=== PATIENT | female | born 1960 | race Caucasian/White ===

== ENCOUNTER → 2017-03-28 | Outpatient (CLI) | payer OTHER ==
[~2017-03-28] MED LIST: ASPIRIN ENTERI325 M1 PO; CALCIUM 600 +1 EAC4 PO; CLOPIDOGREL75 MG PO; DONEPEZIL HCL10 MG PO; GABAPENTIN; GABAPENTIN600 MG PO; HYDROCHLOROTH12.5 M1 PO; OMEPRAZOLE40 M1 PO; PRAVASTATIN SOD10 MG PO; ZOCOR20 MG PO; [UNRECOGNIZED DRUG - REMARK]; [UNRECOGNIZED DRUG - REMARK]
--- NOTE | ~2017-03-28 | BD1 ---
[facility] A Service of [facility] & [facility] RADIOLOGY TEXT RESULTS PATIENT: WINSTON GODINEZ LOCATION: [facility] : 56 UNIT #: [id number] AGE: [address]: Niki Farr APRN SEX: F ORDER DR: [id number] [address] [address] [id number] O MR#: [id number] Acc #: [id number] NAME: WINSTON GODINEZ : 1960 SEX: F STUDY DATE/TIME: 03/28/2017 15:25 UNIT: [facility] ROOM: STUDY DESCRIPTION: BD Dexa Bone Dens 1+ Site Attending Physician: Niki Farr A.P.R.N. Ordering Physician: Niki Farr A.P.R.N. Primary Care Physician: Jacqui Zambrano M.D. MEDICAL IMAGING REPORT This report is preliminary unless electronic signature is present. EXAM DEXA scan 03/28/2017 HISTORY Status post menopause with no hormone replacement therapy. Osteopenia. Hysterectomy at age 46, arthritis. Hypertension with blood pressure medication. Smoking history for 44 years. FINDINGS Bone mineral density in the lumbar spine from L1 through L4 is 1.118 g/cm2, which is 0.5 standard deviations below the mean when compared to the young adult reference population, which is within the range of normal. This is 0.6 standard deviations below the mean when compared to the age-matched population. Bone mineral density in the left femoral neck was 0.895 g/cm2, which is 1 standard deviation below the mean when compared to the young adult reference population, which is characteristic of osteopenia. This is 0.6 standard deviations below the mean when compared to the age-matched population. Bone mineral density in the right femoral neck was 0.896 g/cm2, which is 1 standard deviation below the mean when compared to the young adult reference population, which is characteristic of osteopenia. This is 0.6 standard deviations below the mean when compared to the age-match population. IMPRESSION Bone mineral density in the lumbar spine within the range of normal and within the hips bilaterally characteristic of osteopenia. Dictated by... [facility] A Service of [facility] & [facility] RADIOLOGY TEXT RESULTS PATIENT: WINSTON GODINEZ LOCATION: [facility] : 56 UNIT #: [id number] AGE: [address]: Niki Farr APRN SEX: F ORDER DR: Mauricio Guerrero M.D. THIS IS AN ELECTRONICALLY VERIFIED REPORT Mauricio Guerrero M.D. at 03/29/2017 3:05 PM KRT/to TD: 03/28/2017 22:29 JOB #: [id number] MEDICAL IMAGING REPORT Page 1 of 1
== END | disposition home or self-care (01) ==
LOC: SRAD 15:04
DX: Z13.820 Encounter for screening for osteoporosis (principal); Z78.0 Asymptomatic menopausal state
CPT/HCPCS: 77080

== ENCOUNTER → 2017-04-04 | Outpatient (CLI) | payer OTHER ==
--- NOTE | ~2017-04-04 | CT138 ---
[facility] A Service of [facility] & [facility] RADIOLOGY TEXT RESULTS PATIENT: WINSTON GODINEZ LOCATION: [facility] : 56 UNIT #: [id number] AGE: [address]: Niki Farr APRN SEX: F ORDER DR: [id number] [facility] [address] [place], [place] [address] [id number] P MR#: [id number] Acc #: [id number] NAME: WINSTON GODINEZ. : 1960 SEX: F STUDY DATE/TIME: 04/04/2017 16:36 UNIT: [facility] ROOM: STUDY DESCRIPTION: CT Lung screening initial Attending Physician: Niki Farr A.P.R.N. Referring Physician: Niki Farr A.P.R.N. Ordering Physician: Niki Farr A.P.R.N. Primary Care Physician: Jacqui Zambrano M.D. MEDICAL IMAGING REPORT This report is preliminary unless electronic signature is present EXAM CT of the chest without contrast, lung cancer screening. INDICATIONS [id number] total smoking history. Former smoker quit [address] of the chest was performed without contrast using the low-dose lung cancer screening protocol. CT dose index [address] exam was performed with one or more of the following radiation dose reduction techniques: automatic exposure control, adjustment of mA and/or kV according to patient size, and iterative reconstruction. Coronal and sagittal reformatted images are obtained. COMPARISON No comparisons are available. FINDINGS There are emphysematous changes of the lungs. There are no suspicious pulmonary nodules. Calcified mediastinal and hilar lymph nodes. Coronary artery calcification. No pleural effusion. Bone windows are unremarkable. IMPRESSION There is no suspicious pulmonary nodule. ACR LungRADS category 1. Follow up annual low-dose lung cancer screening chest CT in 1 year. Dictated by... Maico Rojas M.D. THIS IS AN ELECTRONICALLY VERIFIED REPORT Maico Rojas M.D. at 04/06/2017 3:46 PM ARS/jt [facility]. [facility] A Service of [facility] & [facility] RADIOLOGY TEXT RESULTS PATIENT: WINSTON GODINEZ LOCATION: [facility] : 56 UNIT #: [id number] AGE: [address]: Niki Farr APRN SEX: F ORDER DR: TD: 04/05/2017 16:15 JOB #: [id number] MEDICAL IMAGING REPORT Page 1 of 1 COPY
== END | disposition home or self-care (01) ==
LOC: CCAT 09:30
DX: Z87.891 Personal history of nicotine dependence (principal)
CPT/HCPCS: G0297

== ENCOUNTER → 2017-05-05 | Outpatient (CLI) | payer OTHER ==
--- NOTE | ~2017-05-05 | MY11 ---
[facility] A Service [facility] RADIOLOGY TEXT RESULTS PATIENT: WINSTON GODINEZ LOCATION: [facility] : 56 UNIT #: [id number] AGE: [address]: Niki Farr APRN SEX: F ORDER DR: [id number] [address] [address] [id number] O MR#: [id number] Acc #: [id number] NAME: WINSTON GODINEZ : 1960 SEX: F STUDY DATE/TIME: 05/05/2017 16:19 UNIT: [facility] ROOM: STUDY DESCRIPTION: MY Mammogram Screening Dig [place] Attending Physician: Niki Farr A.P.R.N. Referring Physician: Niki Farr A.P.R.N. Ordering Physician: Niki Farr A.P.R.N. Primary Care Physician: Jacqui Zambrano M.D. MEDICAL IMAGING REPORT This report is preliminary unless electronic signature is present. EXAM Digital screening mammogram 05/05/2017 [facility] HISTORY 56-year-old woman, no risk elevation. History of ovarian cancer in maternal grandmother. Annual screen. COMPARISON 05/21/2012, 06/07/2013, 04/29/2016 FINDINGS Digital imaging of each breast was completed utilizing a two-view examination of each breast in craniocaudal and mediolateral-oblique projections. Review and interpretation of digital mammograms include a second review in conjunction with FDA-approved CAD device. There is a normal parenchymal presentation bilaterally consistent with the patient's age. There are no breast masses imaged and no parenchymal asymmetry is visualized. There are no suspicious microcalcifications and I see no focal architectural disturbance. IMPRESSION Negative screening digital mammogram. One-year followup recommended. Patients over the age of 40 are entered into a reminder system with target due date for the next mammogram. A result letter will also be sent to the patient. BIRADS: 1 Negative ADDENDUM Breast parenchyma is fatty replaced [facility] A Service [facility] RADIOLOGY TEXT RESULTS PATIENT: WINSTON GODINEZ LOCATION: [facility] : 56 UNIT #: [id number] AGE: [address]: Niki Farr APRN SEX: F ORDER DR: Dictated by... Jamie José M.D. THIS IS AN ELECTRONICALLY VERIFIED REPORT Jamie José M.D. at 05/06/2017 2:38 PM ASHLEEB/jaya TD: 05/06/2017 11:23 JOB #: [id number] MEDICAL IMAGING REPORT Page 1 of 1
== END | disposition home or self-care (01) ==
LOC: SMAM 15:26
DX: Z12.31 Encounter for screening mammogram for malignant neoplasm of breast (principal)
CPT/HCPCS: G0202

== ENCOUNTER → 2017-06-30 | Day surgery (SDC) | payer OTHER ==
--- NOTE | ~2017-06-30 | OR ---
Unit #: [id number] #: [id number] Patient: WINSTON GODINEZ [id number] [address] [place], [place] [address] [id number] O MR#: [id number] NAME: WINSTON GODINEZ ROOM: Date of Procedure: 06/30/2017 Admission Date: 06/30/2017 Surgeon: Ronnell Morales M.D. : 1960 Attending Physician: Ronnell Morales M.D. Primary Care Physician: Jacqui Zambrano M.D. PROCEDURE OPERATIVE NOTE PREOPERATIVE DIAGNOSIS Patient has personal history of colon polyps and family history of colon cancer. PROCEDURES PERFORMED 1. Colonoscopy. 2. Polypectomy. POSTOPERATIVE DIAGNOSIS 1. The patient had four sessile polyps in the transverse colon and one polyp in the ascending colon. All were small ranging in size from 4 to 7 mm each and were removed using snare polypectomy. 2. Patient had scant sigmoid and descending colon diverticulosis. 3. Rest of the examination up to cecum and terminal ileum was normal. The quality of the prep was good. RECOMMENDATIONS Followup results of polyp histology and consider repeat colonoscopy in five years. SEDATION USED MAC. PROCEDURE DESCRIPTION Following detailed explanation of potential risks and complications of a colonoscopy namely perforation, bleeding, and complication related to sedation, the patient was brought to GI lab and laid in the left lateral decubitus position. A digital rectal examination was performed, which was normal. Lubricated tip of the Olympus video colonoscope was inserted through the anus and advanced under direct vision. The scope was advanced past rectosigmoid into descending colon. Scant small diverticula were noted in this area. The scope was then navigated all the way up to cecum with visualization of the ileocecal valve and the appendiceal orifice. Preparation was good with good visualization and photodocumentation was obtained. Successive segments of the colonic mucosa were examined upon withdrawal. A single sessile polyp was noted in the mid descending colon. This was about 5 or 6 mm in size. It was removed using snare polypectomy. Polyp was retrieved and sent for histology. Four additional polyps were found in the mid and distal transverse colon. These were all removed using snare polypectomy. They were retrieved and sent for histology. The polyps range in size from 4 to 7 mm each. No additional polyps noted. Other than the sigmoid diverticula, no additional abnormalities were Unit #: [id number] #: [id number] Patient: WINSTON GODINEZ found. The patient did not have any hemorrhoids at the anal verge. The scope was then withdrawn. The patient returned to the recovery area. She tolerated the procedure without any post procedure complications. Dictated by... Hemalatha Morrison TD: 06/30/2017 10:58 JOB #: [id number] CC: Jacqui Zambrano M.D. PROCEDURE OPERATIVE NOTE Page 1 of 1 X Ronnell Morales MD X PROCEDURE OPERATIVE NOTE
== END | disposition home or self-care (01) ==
LOC: COPS 06:47
DX: Z12.11 Encounter for screening for malignant neoplasm of colon (principal); D12.2 Benign neoplasm of ascending colon; D12.3 Benign neoplasm of transverse colon; K57.30 Diverticulosis of large intestine without perforation or abscess without bleeding; K21.9 Gastro-esophageal reflux disease without esophagitis; J44.9 Chronic obstructive pulmonary disease, unspecified; G47.30 Sleep apnea, unspecified; I10 Essential (primary) hypertension; Z86.010 Personal history of colon polyps; Z80.0 Family history of malignant neoplasm of digestive organs; Z87.891 Personal history of nicotine dependence; Z86.73 Personal history of transient ischemic attack (TIA), and cerebral infarction without residual deficits; Z99.81 Dependence on supplemental oxygen; Z95.5 Presence of coronary angioplasty implant and graft; Z98.890 Other specified postprocedural states; Z98.51 Tubal ligation status; Z90.710 Acquired absence of both cervix and uterus; Z90.49 Acquired absence of other specified parts of digestive tract; Z79.82 Long term (current) use of aspirin; Z79.84 Long term (current) use of oral hypoglycemic drugs; Z79.01 Long term (current) use of anticoagulants; Z79.899 Other long term (current) drug therapy
CPT/HCPCS: 88305; J2250